=== PATIENT | male | born 1975 | race Caucasian/White ===

== ENCOUNTER 2023-01-04 20:05 | Emergency (ER) | payer OTHER ==
[~2023-01-04] VITALS: Ht 172.7 cm; Wt 90.7 kg
--- NOTE | 2023-01-04 20:15 | NUR ---
Patient was placed in the hallway on a bed and treatment was done by eron nurse due to other ER nurses had 4 patient already.
[2023-01-04 20:33] LABS: HEMATOCRIT 35.3 % (36.7-47.1); MEAN CORPUSCULAR HEMOGLOBIN 23.4 uug (23.8-33.4); MEAN CORPUSCULAR VOLUME 74.8 fL (73.0-96.2); PLATELET COUNT (AUTO) 402 K/uL (152-348)
[2023-01-04 20:43] LABS: ETHANOL < 3 MG/DL (0-0)
[2023-01-04 20:51] LABS: CARBON DIOXIDE 24 mmol/L (21-32); CHLORIDE 106 mmol/L (98-107); CREATININE 1.4 mg/dL (0.6-1.3); GLUCOSE 110 mg/dL (74-106); POTASSIUM 3.4 mmol/L (3.5-5.1); UREA NITROGEN, BLOOD 20 mg/dL (7-18)
[2023-01-04 20:57] LABS: ACETAMINOPHEN < 2.0 ug/mL (10-30); ALANINE AMINOTRANSFERASE 53 U/L (16-63); ALKALINE PHOSPHATASE 110 U/L (50-136); ASPARTATE AMINOTRANSFERASE 30 U/L (15-37); BILIRUBIN,DIRECT 0.1 mg/dL (0.0-0.2); BILIRUBIN,TOTAL 0.6 mg/dL (0.2-1.0); TOTAL PROTEIN, SERUM 8.3 g/dL (6.4-8.2)
[2023-01-04 22:22] LABS: *BILIRUBIN,URIN NEGATIVE (NEGATIVE); *BLOOD, URINE NEGATIVE (NEGATIVE); *CLARITY,URINE CLEAR (CLEAR); *COLOR,URINE YELLOW (YELLOW); *KETONES,URINE NEGATIVE (NEGATIVE); *UROBILINOGEN,URINE 0.2 E.U./dl (NORMAL); LEUKOCYTE ESTERASE ,URINE NEGATIVE (NEGATIVE); NITRITE, URINE NEGATIVE (NEGATIVE); UGLUCOSE NEGATIVE (NEGATIVE)
[2023-01-04 22:23] LABS: RBC,URINE 0-3 /HPF (0-3); WBC,URINE 0-3 /HPF (0-3)
[2023-01-04 22:34] LABS: *AMPHETAMINE, URINE POSITIVE (NEGATIVE); *CANNABINOID, URINE NEGATIVE (NEGATIVE); *COCCAINE, URINE NEGATIVE (NEGATIVE); *PHENCYCLIDINE SCREEN,URINE POSITIVE (NEGATIVE)
--- NOTE | 2023-01-04 23:00 | NUR ---
PT A,A AND O X 3 WITH NO C/O PAIN, NO SOB. GIRL FRIEND AT BEDSIDE.
--- NOTE | 2023-01-04 23:10 | NUR ---
Placed in room 3A at this time, due to Er was inudated with patient.
[2023-01-04] MEDS ORDERED: IBUPROFEN 600 MG TABLET ONE (23:49)
[2023-01-04] MEDS ORDERED: CLONIDINE HCL 0.1 MG TABLET ONE (23:49)
--- NOTE | 2023-01-05 | NUR ---
Patient does not wish to proceed with medical care recommended by Dr. HUNT ). Patient given information related to possible complications, up to and including , which could occur as a result of leaving the hospital at this time. Patient verbalizes understanding of risks involved due to leaving against medical advice. Patient REFUSED TO SIGN AMA form. PT AMB OUT WITH STEADY GAIT WITH S.O.
[2023-01-05] MEDS: CLONIDINE HCL 0.1 MG TABLET PO ONE (00:11)
[2023-01-05] MEDS: IBUPROFEN 600 MG TABLET PO ONE (00:12)
== END 2023-01-05 | disposition left against medical advice (07) ==
LOC: ER 20:07
DX: R07.89 Other chest pain (principal); F32.A Depression, unspecified; I10 Essential (primary) hypertension; R51.9 Headache, unspecified; M54.2 Cervicalgia; Z20.822 Contact with and (suspected) exposure to COVID-19; V29.99XA Rider (driver) (passenger) of other motorcycle injured in unspecified traffic accident, initial encounter; Y93.89 Activity, other specified; Y92.89 Other specified places as the place of occurrence of the external cause; Y99.8 Other external cause status
CPT/HCPCS: 36415; 70450; 71045; 72125; 84484; 85025; 85730; 93005; A4663; G0480